=== PATIENT | female | born 1955 | race Caucasian/White ===

== ENCOUNTER 2024-03-16 05:46 | Observation (INO) | payer MEDICARE, OTHER ==
[2024-03-08 11:39] VITALS: BMI 23.0
[2024-03-16] MEDS ORDERED: CEFAZOLIN 2 GM VIAL ONE (06:00)
[2024-03-16] MEDS ORDERED: Lidocaine 1% MPF 2 ML VIAL ONE (06:00)
[2024-03-16] MEDS ORDERED: Sodium Chloride 0.9% 100 ML ONE (06:00)
[2024-03-16] MEDS ORDERED: Vancomycin 1 GM VIAL ONE (06:37)
[2024-03-16] MEDS ORDERED: Thrombin 5000 UNITS/5 ML VIAL ONE (06:37)
[2024-03-16] MEDS ORDERED: PHENYLEPHRINE-NS 100 MCG/ML 10 ML SYRINGE ONE ×2 (06:44→10:13)
[2024-03-16] MEDS ORDERED: SUCCINYLCHOLINE/SOD CL,ISO/PF 200 MG/10 ML SYRINGE FS ONE (06:44)
[2024-03-16] MEDS ORDERED: Lidocaine 1% PF 5 ML VIAL ONE (06:44)
[2024-03-16] MEDS ORDERED: Ondansetron PF 4 MG/2 ML Vial ONE (06:44)
[2024-03-16] MEDS ORDERED: fentaNYL PF 100 MCG/2 ML SYRINGE ONE (06:44)
[2024-03-16] MEDS ORDERED: Dexamethasone 20 MG/5 ML VIAL ONE (06:44)
[2024-03-16] MEDS ORDERED: Glycopyrrolate 0.2 MG/ML 5 ML SYRINGE ONE (06:44)
[2024-03-16] MEDS ORDERED: PROPOFOL 20 ML ONE (06:44)
[2024-03-16] MEDS ORDERED: EPINEPHrine 1 MG/ML VIAL ONE (06:45)
[2024-03-16] MEDS ORDERED: Lidocaine 1% (PF) 30 ML VIAL ONE (06:45)
[2024-03-16] MEDS ORDERED: HYDROmorphone 2 MG/ML VIAL ONE (06:52)
[2024-03-16] MEDS ORDERED: Rocuronium Bromide 10 MG/ML (10ML VIAL) ONE (10:23)
[2024-03-16] MEDS ORDERED: SUGAMMADEX SODIUM 200 MG/2 ML VIAL ONE (10:57)
[2024-03-16] MEDS ORDERED: Acetaminophen 325 MG TAB PO PRN (11:12)
[2024-03-16] MEDS ORDERED: HYDROcodone/Acetaminophen 10/325 mg Tablet PO PRN (11:12)
[2024-03-16] MEDS ORDERED: diphenhydrAMINE 50 MG/ML VIAL IVP PRN (11:12)
[2024-03-16] MEDS ORDERED: fentaNYL 50 mcg/mL 1 mL Vial ONE (12:11)
[2024-03-16] MEDS: tiZANidine HCl 4 MG TAB PO PRN (14:31)
[2024-03-16] MEDS: CEFAZOLIN 2 GM in Sodium Chloride 0.9% 100 ML IVPB SCH (14:31)
[2024-03-16] MEDS: HYDROcodone/Acetaminophen 7.5/325 mg Tablet PO PRN (14:32)
[2024-03-16] MEDS: Sodium Chloride 0.9% 1,000 ML IV SCH (16:23)
[2024-03-17] MEDS: Pantoprazole DR 40 MG TAB PO SCH (09:00)
[2024-03-17 11:49] VITALS: BP 118/76; TEMP 97.1
== END 2024-03-17 13:54 | disposition home or self-care (01) ==
LOC: SDC 05:46 → SURG B 11:14
PROVIDERS: ADMIT Otolaryngology Otolaryngic Allergy; ATTEND Otolaryngology Otolaryngic Allergy
DX: M48.02 Spinal stenosis, cervical region (principal); M54.12 Radiculopathy, cervical region; R42 Dizziness and giddiness; Z01.818 Encounter for other preprocedural examination; M50.021 Cervical disc disorder at C4-C5 level with myelopathy; M50.022 Cervical disc disorder at C5-C6 level with myelopathy; M50.023 Cervical disc disorder at C6-C7 level with myelopathy
CPT/HCPCS: 20930; 20936; 22551; 22552; 22853 ×2; 80048; 85025; 85610; 85730; 93005; C1713 ×5; J0171; J1100; J1170; J2001; J2405; J2704; J3010; J3370; 93010